=== PATIENT | female | born 1980 ===

== ENCOUNTER 2018-01-25 15:13 | Inpatient (IN) | payer OTHER ==
[~2018-01-25] VITALS: Ht 165.1 cm; Wt 2.7 kg
== END 2018-02-11 13:44 | disposition home or self-care (01) | DRG 765 ==
LOC: OB/GYN 02-08 06:38 → O/R 02-08 06:38 → LDR 02-08 08:00 → OB/GYN 02-08 10:57 → LDR 02-08 11:00 → OB/GYN 02-08 11:43
PROVIDERS: Obstetrics & Gynecology Maternal & Fetal Medicine
PROC: 4A1HXCZ Monitoring of Products of Conception, Cardiac Rate, External Approach (ICD-10-PCS; 2018-02-08)
PROC: 0UB70ZZ Excision of Bilateral Fallopian Tubes, Open Approach (ICD-10-PCS; 2018-02-08)
PROC: 4A033R1 Measurement of Arterial Saturation, Peripheral, Percutaneous Approach (ICD-10-PCS; 2018-02-08)
PROC: 10D00Z1 Extraction of Products of Conception, Low, Open Approach (ICD-10-PCS; principal; 2018-02-08 11:00)
DX: O32.2XX1 Maternal care for transverse and oblique lie, fetus 1 (principal); O30.093 Twin pregnancy, unable to determine number of placenta and number of amniotic sacs, third trimester; O34.211 Maternal care for low transverse scar from previous cesarean delivery; O75.82 Onset (spontaneous) of labor after 37 completed weeks of gestation but before 39 completed weeks gestation, with delivery by (planned) cesarean section; Z37.2 Twins, both liveborn; Z3A.37 37 weeks gestation of pregnancy; Z30.2 Encounter for sterilization

== ENCOUNTER 2018-02-03 10:19 | Outpatient (CLI) | payer OTHER | END 2018-02-03 12:46 | disposition home or self-care (01) | LOC: NST 10:19 | DX: O30.003 Twin pregnancy, unspecified number of placenta and unspecified number of amniotic sacs, third trimester (principal); Z34.83 Encounter for supervision of other normal pregnancy, third trimester ==

== ENCOUNTER 2022-04-06 08:16 | Outpatient (CLI) | payer OTHER | END 2022-04-06 08:24 | disposition home or self-care (01) | LOC: RAD 08:16 | DX: J15.7 Pneumonia due to Mycoplasma pneumoniae (principal); R07.9 Chest pain, unspecified; R50.9 Fever, unspecified; R05.9 Cough, unspecified ==